=== PATIENT | male | born 1945 | race Caucasian/White ===

== ENCOUNTER 2016-06-23 06:53 | Day surgery (SDC) | payer MEDICARE ==
[~2016-06-23 06:53] MED LIST: CARDIZEM CD240 M1 PO; CELECOXIB200 MG PO; CIPRO250 M2 PO; COUMADIN1 M1 PO; FLECAINIDE ACET50 M1 PO; FLOMAX0.4 M1 PO; FOLIC ACID1 M1 PO; LASIX20 M1 PO; LOW DOSE ASPIRI81 M3 PO; METFORMIN HCL500 M2 PO; MUCINEX1200 MG PO; PERCOCET 5-3251 EACH PO; POTASSIUM CHLO20 ME3 PO; ZITHROMAX250 M1 PO
[2016-06-23 08:13] LABS: BASO % 1.4 % (0-2); BASO ABSOLUTE COUNT 0.1 tho/cmm (0.0-0.2); EOS % 1.9 % (0-7); EOSINOPHIL ABSOLUTE COUNT 0.1 tho/cmm (0.0-0.7); HCT-HEMATOCRIT 46.8 % (36.0-53.5); HGB-HEMOGLOBIN 15.5 gm/dl (13.5-17.0); IMMATURE GRANULOCYTES ABSOLUTE 0.17 tho/cmm (0-0.03); IMMATURE GRANULOCYTES PERCENT 2.4 % (0-0.3); LYMPH % 23.4 % (20-45); LYMPH ABSOLUTE COUNT 1.7 tho/cmm (0.8-4.5); MCH (MEAN CORPUSCULAR HGB) 30.3 pg (28.0-32.0); MCHC MEAN CORPUSCULAR HGB CONC 33.1 % (32.0-36.0); MCV (MEAN CELL VOLUME) 91.6 fl (82.0-96.0); MEAN PLATELET VOLUME 8.9 cmc (9.4-12.4); MONO % 5.8 % (0-12); MONOCYTE ABSOLUTE COUNT 0.4 tho/cmm (0.0-1.2); NEUTROPHIL ABSOLUTE COUNT 4.7 tho/cmm (1.6-8.0); NEUTROPHIL-AUTOMATED 4.7 tho/cmm (1.6-8.0); NEUTROPHILS % 65.1 % (40-80); PLATELET COUNT 175 tho/cmm (150-450); RED BLOOD COUNT 5.11 mil/cmm (4.40-5.70); RED CELL DISTRIBUTION WIDTH 14.5 % (12.4-16.4); WHITE BLOOD COUNT 7.2 tho/cmm (4.0-10.0)
[2016-06-23 08:17] LABS: INR 1.4 INR (0.9-1.1); PROTHROMBIN TIME 16.2 SECONDS (9.0-13.6)
[2016-06-23 08:23] LABS: ANION GAP 11 mmol/L (0-20); BLOOD UREA NITROGEN 11 mg/dl (6-24); CALCIUM 8.4 mg/dl (8.5-10.5); CARBON DIOXIDE-VENOUS 23 mmol/L (22-32); CHLORIDE 114 mmol/l (96-110); CREATININE 1.06 mg/dl (0.60-1.30); GLUCOSE 147 mg/dL (70-110); POTASSIUM 4.1 mmol/L (3.7-5.1); SODIUM 144 mmol/L (135-145); eGFR VALUE FOR BLACK 83 mL/Min
[2016-06-23 08:58] LABS: URINE APPEARANCE HAZY; URINE BILIRUBIN SMALL (NEG); URINE BLOOD LARGE (NEG); URINE COLOR DARK YELLOW; URINE GLUCOSE (UA) NEGATIVE (NEG); URINE KETONE SMALL (NEG); URINE LEUKOCYTE ESTERASE POSITIVE (NEG); URINE NITRITE NEGATIVE (NEG); URINE PROTEIN MODERATE (NEG); URINE SPECIFIC GRAVITY 1.025 (1.003-1.030)
[2016-06-23 09:00] LABS: URINE EPITHELIAL CELLS 20-25 /[HPF] (0-10)
[2016-06-23 09:01] LABS: URINE AMORPHOUS 1+; URINE MUCUS 2+
[2016-06-24 06:00] LABS: HCT-HEMATOCRIT 42.1 % (36.0-53.5); HGB-HEMOGLOBIN 13.9 gm/dl (13.5-17.0); MCV (MEAN CELL VOLUME) 90.3 fl (82.0-96.0); RED CELL DISTRIBUTION WIDTH 14.2 % (12.4-16.4)
--- NOTE | 2016-06-25 07:39 | NUR ---
GIANNI ROUNDING-VISITED WITH PATIENT HE LAY IN BED EATING HIS BREAKFAST. 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 WE DISCUSSED THAT HE NEEDS TO MAKE SURE HE HAS CLEARED IT WITH DR ESCALONA THAT HE CAN DRIVE. AUGUSTINA HUGHES IS OUT AND I TOLD HIM WE WILL NEED TO WAIT TO SEE THE PA FOR ORDERS AND THAT HE WILL NEED TO VOID PRIOR TO BEING DISCHARGED. PATIENT UNDERSTOOD ALL AND HAD NO FURTHER QUESTIONS OR CONCERNS
--- NOTE | 2016-06-25 09:24 | NUR ---
DC [facility] AT 0700 THIS AM WITHOUT DIFFICULTY. PATIENT HAS VOIDED POST [facility] REMOVAL FOR A TOTAL OF X3 FOR 300ML LIGHT PINK URINE. DENIES DIFFICULTY OR PAIN
[2016-06-25] MEDS ORDERED: LEVAQUIN500 M1 PO (09:31)
--- NOTE | 2016-06-25 10:09 | NUR ---
[facility] DISCHARGE TEACHING-REVIEWED DISCHARGE INSTRUCTIONS REGARDING ACTIVITY,MEDS,FOLLOWUP APPT. WE ALSO REVIEWED THAT HE IS NOT TO DRIVE HIMSELF HOME TODAY AND HE VERBALIZED UNDERSTANDING AND WILL HAVE HIS BROTHER IN [place] COME PICK HIM UP. ALSO TOLD HIM NO WORK TILL WEDNESDAY. PATIENT WAS ABLE TO DO TEACHBACK ON HIS MEDS AND THE REST OF THE INSTRUCTIONS. NO FURTHER QUESTIONS OR CONCERNS AT THIS TIME
--- NOTE | 2016-06-25 10:37 | NUR ---
PATIENT HAS CALLED A FRIEND AND THEY WILL BE HERE TO PICK HIM UP. EDUCATED HIM NOT TO DRIVE HOME. STATES HE UNDERSTANDS.
== END 2016-06-25 10:30 ==
LOC: SHSC 06:53 → ORW 10:39 → PACU 13:35 → 5WD 14:15
PROVIDERS: Urology
PROC: 0TCB8ZZ Extirpation of Matter from Bladder, Via Natural or Artificial Opening Endoscopic (ICD-10-PCS; principal; 2016-06-23)
PROC: 0VT08ZZ Resection of Prostate, Via Natural or Artificial Opening Endoscopic (ICD-10-PCS; 2016-06-23)
DX: N21.0 Calculus in bladder (principal); N40.1 Benign prostatic hyperplasia with lower urinary tract symptoms; N13.8 Other obstructive and reflux uropathy; C61 Malignant neoplasm of prostate; I25.10 Atherosclerotic heart disease of native coronary artery without angina pectoris; I50.9 Heart failure, unspecified; I48.91 Unspecified atrial fibrillation; E66.9 Obesity, unspecified; H91.92 Unspecified hearing loss, left ear; G47.30 Sleep apnea, unspecified; Z79.01 Long term (current) use of anticoagulants; Z79.1 Long term (current) use of non-steroidal anti-inflammatories (NSAID); Z79.82 Long term (current) use of aspirin; Z79.84 Long term (current) use of oral hypoglycemic drugs; Z79.899 Other long term (current) drug therapy; Z87.442 Personal history of urinary calculi; Z90.49 Acquired absence of other specified parts of digestive tract; Z98.890 Other specified postprocedural states
CPT/HCPCS: J1956